=== PATIENT | female | born 1975 | race Caucasian/White ===

== ENCOUNTER 2025-03-27 13:19 | Emergency (ER) | payer OTHER, SELFPAY ==
--- NOTE | ~2025-03-27 | CT_ITS ---
CLINICAL HISTORY: left nephrolithiasis eval CT abdomen and pelvis without IV contrast. COMPARISON: None provided. FINDINGS: Partially visualized lung bases are unremarkable. Cholelithiasis within the gallbladder fundus. No pericholecystic inflammatory changes. Liver is enlarged with right lobe measuring 19.5 cm. Noncontrast appearance of the spleen, pancreas and adrenal glands are unremarkable. No renal or ureteral calculus. No hydronephrosis or hydroureter. Normal appendix. Moderate colonic stool burden within the ascending and transverse colon. No bowel obstruction. No mesenteric or retroperitoneal lymphadenopathy. Normal abdominal aorta. Normal appearance of the urinary bladder. No adnexal mass. Small fat containing umbilical hernia. Mild spondylosis. No acute fracture or suspicious bone lesion. IMPRESSION: 1. No evidence of renal obstruction. No renal or ureteral calculus bilaterally. 2. Cholelithiasis. No stigmata of cholecystitis. 3. Moderate colonic stool burden within the ascending colon and transverse colon. No bowel obstruction. This document has been electronically signed by: Uriel Caballero MD on 03/27/2025 16:32:11
[2025-03-27 13:31] VITALS: BP 116/55; PULSE 73; RESP 16; TEMP 36.8; O2SAT 98; BMI 42.0
--- NOTE | 2025-03-27 13:35 | ECG_ITS ---
Test Reason : ABD PAIN Blood Pressure : */* mmHG Vent. Rate : 74 BPM Atrial Rate : 74 BPM P-R Int : 148 ms QRS Dur : 92 ms QT Int : 374 ms P-R-T Axes : 44 -6 35 degrees QTcB Int : 415 ms Normal sinus rhythm Incomplete right bundle branch block Nonspecific T wave abnormality Abnormal ECG No previous ECGs available Referred By: Abraham Castañeda Electronically Signed By: ZACK WOODS MD
--- NOTE | 2025-03-27 13:36 | ED.GENADULT ---
HPI - General Adult General Chief complaint: Abdominal Pain Stated complaint: severe L abd pain Related Data Allergies Allergy/AdvReac Type Severity Reaction Status Date / Time lamotrigine (Lamictal) Allergy Unknown Rash Verified 03/27/25 13:32 Physical Exam ED Vital Signs: Vital Signs - 24 hr 03/27/25 13:31 Temperature 98.2 F Pulse Rate 73 Respiratory Rate 16 Blood Pressure 116/55 L Pulse Oximetry 98 Oxygen Delivery Method Room Air BMI result Body Mass Index 42.0 Course Course Course Narrative: RME: 49-year-old female presents to ED for left upper quadrant abdominal pain with nausea since . Patient denies any diarrhea, fever, chest pain or shortness of breath. Labs EKG ordered. Discharge Plan Discharge Print Language: Slovak
[2025-03-27 13:56] LABS: Hematocrit 41.2 % (37.0-47.0); Hemoglobin 14.4 g/dl (12.0-16.0); Imm Gran Abs Auto 0.02 X10*3/uL (0.00-0.03); Imm Gran Pct Auto 0.4 % (0.0-0.4); Lymphocytes Absolute Auto 1.7 X10*3/uL (1.2-4.9); MANUAL DIFF FLAG NO; Mean Corpuscular HGB Conc 35.0 g/dl (31.0-35.0); Mean Corpuscular Hemoglobin 31.9 pg (27.0-33.0); Mean Corpuscular Volume 91.2 fL (80.0-98.0); NRBC Abs Auto 0.000 X10*3/uL (0.0-0.012); NRBC Pct Auto 0.0 /100WBC (0.0-0.2); Platelet Count 199 X10*3/uL (160-400); Red Blood Count 4.52 X10*6/uL (4.20-5.50); White Blood Count 5.7 X10*3/uL (4.8-10.8)
[2025-03-27 14:02] LABS: INTERNATIONAL NORM RATIO 1.1 (0.9-1.1); Prothrombin Time 13.0 SEC (10.9-12.4)
[2025-03-27 14:04] LABS: Partial Thromboplastin Time 35.6 SEC (26.7-34.1)
--- OUTSIDE RECORDS SUMMARY | 2025-03-27 14:34 | XMS_ITS | Encounter Summary ---
Author Organization [facility] Address [address] [address] Phone Care Team Providers Care Teacher Cclc Name Role Phone Tere Carcamo MD Unavailable [phone] Hill Min MD Unavailable Talha Krueger MD Unavailable [phone] Amna Wise MD Unavailable [phone] Amee Noriega PA-C Unavailable [phone] Nimo Zepeda BENCH LATHE OPERATOR Unavailable [phone] Unavailable [email or web address] Joe Hernandez MD Unavailable [phone] Amna Wise MD Primary Care Provider Encounter Details Date Type Department Care Team (Late st Contact Info) Description 09/23/2017 Procedure Pass [place] Admitting Dept - Virtual Department [address] [place] [address] Social History Tobacco Use Types Packs/Day Years Used Date Smoking Tobacco: Former Cigarettes 1 10 1 2 - 2001 Smokeless Tobacco: Never Alcohol Use Standard Drinks/Week Comments No 0 (1 standard drink = 0.6 oz pur e alcohol) Comments Unknown Sex and Gender Information Value Date Recorded Sex Assigned at Not on file Legal Sex Female 9:31 PM EDT Gender Identity Not on file Sexual Orientation Not on file documented as of this encounter Plan of Treatment Not on file documented as of this encounter Visit Diagnoses Not on filedocumented in this encounter Additional Health Concerns Infection Onset Date Last Indicated Resolved Time MRSA 10/16/2017 10/16/2017 09/04/2022 1:26 AM EST documented as of this encounter Care Teams Teacher Cclc Relationship Specialty Start Date End Date Amna Wise MD [address] [place] [address] PCP - General Family Medicine 06/30/17 Tere Carcamo MD [address] [place] [address] Historical LMR Provider 05/05/17 2 Hill Min MD [address] [place] [address] [email or web address] Historical LMR Provider 05/05/17 07/28/21 Talha Krueger MD [address] [place] [address] [email or web address] Historical LMR Provider 05/05/17 07/28/21 Amna Wise MD [address] [place] [address] Historical LMR Provider 05/05/17 2 Amee Noriega PA-C [address] [place] [address] Orthopedics & Sports Medicine, [facility] [place] [address] [email or web address] Historical LMR Provider 05/05/17 07/28/21 Nimo Zepeda NP [address] [place] [address] Historical LMR Provider 05/05/17 07/28/21 Ashley Jon RDCS [email or web address] Historical LMR Provider 05/05/17 07/28/21 Joe Hernandez MD [address] [place] [address] Historical LMR Provider 05/05/17 2 documented as of this encounter Additional Source Comments The information contained in this document represents components of the legal health record. It is not the complete legal health record.[facility]
--- OUTSIDE RECORDS SUMMARY | 2025-03-27 14:34 | XMS_ITS | Encounter Summary ---
Author Organization [facility] Address [address] [email or web address] [facility] [address] [place] [address] Phone Care Team Providers Care Travograph Operator Name Role Phone Amna Wise MD Primary Care Provider Encounter Details Date Type Department Care Team (Late st Contact Info) Description 11/03/2023 Procedure Pass [facility] Endoscopy Admitting Dept Virtual Department [address] [place] [address] Social History Tobacco Use Types Packs/Day Years Used Date Smoking Tobacco: Former Cigarettes 1 10 2 - 2001 Smokeless Tobacco: Never Alcohol Use Standard Drinks/Week Comments No 0 (1 standard drink = 0.6 oz pur e alcohol) Education Answer Date Recorded Are you interested in more education? Not on latonia e 11/15/2022 Are you concerned about learning? Not on file 11/15/2022 No 11/15/2022 No 11/15/2022 Digital Access Answer Date Recorded No 12/16/2022 No 12/16/2022 Reliable internet access at home? Not on file 12/16/2022 Device with a working camera? Not on file Intimate Partner Violence Answer Date R ecorded Are you denied basic needs s uch as food, clothing, or medical care? No 11/03/2023 In the past 12 months have y ou been in a relationship with a person who hurts, threatens, or tries to control you? No 11/03/2023 Are you denied basic needs s uch as food, clothing, or medical care? No 11/03/2023 In the past 12 months have y ou been in a relationship with a person who hurts, threatens, or tries to control you? No 11/03/2023 Comments No Sex and Gender Information Value Date Recorded Sex Assigned at Not on file Legal Sex Female 9:31 PM EDT Gender Identity Not on file Sexual Orientation Not on file documented as of this encounter Plan of Treatment Not on file documented as of this encounter Visit Diagnoses Not on filedocumented in this encounter Care Teams Travograph Operator Relationship Specialty Start Date End Date Amna Wise [facility] [place] [address] PCP - General Family Medicine 06/30/17 documented as of this encounter Additional Source Comments The information contained in this document represents components of the legal health record. It is not the complete legal health record.[facility]
--- OUTSIDE RECORDS SUMMARY | 2025-03-27 14:34 | XMS_ITS | Patient Health Record ---
Author Organization [facility] Address [address] [place] [id number] Care Team Providers Care Software Project Lead Name Role Phone John Mcfadden [phone] Reason For Referral No Information Plan Of Treatment No Information
--- OUTSIDE RECORDS SUMMARY | 2025-03-27 14:34 | XMS_ITS | Encounter Summary ---
Author Organization [facility] Address [address] [address] Phone Care Team Providers Care General Sales Manager Name Role Phone Tere Carcamo MD Unavailable [phone] Hill Min MD Unavailable Talha Krueger MD Unavailable [phone] Amna Wise MD Unavailable [phone] Amee Noriega PA-C Unavailable [phone] Nimo Zepeda TITLE AGENT Unavailable [phone] Ashley Jon RDCS Unavailable [email or web address] Joe Hernandez MD Unavailable [phone] Amna Wise MD Primary Care Provider Encounter Details Date Type Department Care Team (Late st Contact Info) Description 04/12/2019 Procedure Pass [facility] Endoscopy Admitting Dept Virtual Department [address] [place] [address] Social History Tobacco Use Types Packs/Day Years [...] documented as of this encounter Care Teams General Sales Manager Relationship Specialty Start Date End Date Amna Wise MD [address] [place] [address] PCP - General Family Medicine 06/30/17 Tere Carcamo MD [address] [place] [address] Historical LMR Provider 05/05/17 2 Hill Min MD [address] [place] [address] [email or web address] Historical LMR Provider 05/05/17 07/28/21 Talha Krueger MD [address] [place] [address] [email or web address] Historical LMR Provider 05/05/17 07/28/21 Amna Wise MD [address] [place] [address] Historical LMR Provider 05/05/17 2 Amee Noriega PA-C [address] [place] [address] Orthopedics & Sports Medicine, [facility] [place] [address] [email or web address] Historical LMR Provider 05/05/17 07/28/21 Nimo Zepeda NP [address] [place] [address] Historical LMR Provider 05/05/17 07/28/21 Ashley Jon RDCS [email or web address] Historical LMR Provider 05/05/17 07/28/21 Joe Hernandez MD [address] [place] [address] Historical LMR Provider 05/05/17 2 documented as of this encounter Additional Source Comments The information contained in this document represents components of the legal health record. It is not the complete legal health record.[facility]
--- OUTSIDE RECORDS SUMMARY | 2025-03-27 14:34 | XMS_ITS | Encounter Summary ---
Author Organization [facility] Address [address] [facility] [address] [place] [address] Phone Care Team Providers Care Flight Communications Operator Name Role Phone Tere Carcamo MD Unavailable [phone] Hill Min MD Unavailable [phone] Talha Krueger MD Unavailable Amna Wise MD Unavailable Amee Noriega PA-C Unavailable [phone] Nimo Zepeda TRANSCRIPTION SPECIALIST Unavailable [phone] Ashley Jon RDCS Unavailable [email or web address] Joe Hernandez MD Unavailable [phone] Amna Wise MD Primary Care Provider Encounter Details Date Type Department Care Team (Late st Contact Info) Description 10/16/2017 Documentation [facility] Infectious Disease Virtual Department [address] [place] [address] Clare Miner, PAUL [address] [place] [address] [email or web address] Social History Tobacco Use Types Packs/Day Years Used Date Smoking Tobacco: Former Cigarettes 1 10 1 992 - 2001 Smokeless Tobacco: Never Alcohol Use [...] documented as of this encounter Care Teams Flight Communications Operator Relationship Specialty Start Date End Date Amna Wise MD [address] [address] PCP - General Family Medicine 06/30/17 Tere Carcamo MD [address] [place] [address] Historical LMR Provider 05/05/17 2 Hill Min MD [address] [place] [address] [email or web address] Historical LMR Provider 05/05/17 07/28/21 Talha Krueger MD [address] [place] [address] [email or web address] Historical LMR Provider 05/05/17 07/28/21 Amna Wise MD [address], [place] [address] Historical LMR Provider 05/05/17 2 Amee Noriega PA-C [address] [place] [address] Orthopedics & Sports Medicine, [place] [address] [email or web address] Historical LMR Provider 05/05/17 07/28/21 Nimo Zepeda NP [address] [place] [address] [address] [place] [address] [email or web address] Historical LMR Provider 05/05/17 07/28/21 Ashley Jon, CS [email or web address] Historical LMR Provider 05/05/17 07/28/21 Joe Hernandez MD [address] [place] [address] Historical LMR Provider 05/05/17 2 documented as of this encounter Additional Source Comments The information contained in this document represents components of the legal health record. It is not the complete legal health record.[facility]
--- OUTSIDE RECORDS SUMMARY | 2025-03-27 14:34 | XMS_ITS | Encounter Summary ---
Author Organization [facility] Address [address] [address] Phone Care Team Providers Care Casting Machine Operator Name Role Phone Tere Carcamo MD Unavailable Hill Min MD Unavailable [phone] Talha Krueger MD Unavailable Amna Wise MD Unavailable [phone] Amee Noriega PA-C Unavailable [phone] Nimo Zepeda TOBACCO PRIZER Unavailable [phone] Unavailable [email or web address] Joe Hernandez MD Unavailable [phone] Amna Wise MD Primary Care Provider Reason for Referral * Physical Therapy (Routine) - Closed Specialty Diagnoses / Procedures Referred By Brenda t Referred To Contact Physical Therapy Diagnoses Encounter for rehabilitation Antwon Rosa MD Phone: tel: fax: [email or web address] Phone: tel: Referral ID Status Reason Start Date Expiration Date Visits Re quested Visits Authorized [id number] Closed 07/09/2019 07/09/2020 99 [phone] Encounter Details Date Type Department Care Team (Latest Contact Info) Description 07/09/2019 Transcribe Orders [facility] [address] [place] [address] Antwon Rosa MD [address] [place] [address] [email or web address] Encounter for rehabilitation (Primary Dx) Social History Tobacco Use Types Packs/Day Years Used Date Smoking Tobacco: Former Cigarettes 1 10 2001 Smokeless Tobacco: Never Alcohol Use Standard Drinks/Week Comments No 0 (1 standard drink = 0.6 oz pur e alcohol) Comments Unknown Sex and Gender Information Value Date Recorded Sex Assigned at Not on file Legal Sex Female 9:31 PM EDT Gender Identity Not on file Sexual Orientation Not on file documented as of this encounter Plan of Treatment Scheduled Referrals Name Type Priority Associated Diagnoses Orde r Schedule Ambulatory referral to [facility] Physical Therapy Outpatient Referral Routine Encounter for rehabilitation Ordered: 07/09/2019 documented as of this encounter Visit Diagnoses Diagnosis Encounter for rehabilitation- Primary documented in this encounter Additional Health Concerns Infection Onset Date Last Indicated Resolved Time MRSA 10/16/2017 10/16/2017 09/04/2022 1:26 AM EST documented as of this encounter Care Teams Casting Machine Operator Relationship Specialty Start Date End Date Amna Wise MD [address] [address] PCP - General Family Medicine 06/30/17 Tere Carcamo MD [address] [place] [address] Historical LMR Provider 05/05/17 2 Hill Min MD [address] [place] [address] [email or web address] Historical LMR Provider 05/05/17 07/28/21 Talha Krueger MD [address] [place] [address] Historical LMR Provider 05/05/17 07/28/21 Amna Wise MD [address], [place] [address] Historical LMR Provider 05/05/17 2 Amee Noriega PA-C [address] [place] [address] Orthopedics & Sports Medicine, [place] [address] Historical LMR Provider 05/05/17 07/28/21 Nimo Zepeda NP [address] [address] Historical LMR Provider 05/05/17 07/28/21 Ashley Jon, [facility] Historical LMR Provider 05/05/17 07/28/21 Joe Hernandez MD [address] [place] [address] Historical LMR Provider 05/05/17 2 documented as of this encounter Additional Source Comments The information contained in this document represents components of the legal health record. It is not the complete legal health record.[facility]
--- OUTSIDE RECORDS SUMMARY | 2025-03-27 14:34 | XMS_ITS | Clinical Summary ---
Author Organization [facility] Address [address] [facility] [address] [place] [address] Phone Care Team Providers Care Complaints Coordinator Name Role Phone Amna Guerrero MD Primary Care Provider Allergies Active Allergy Reactions Criticality Noted Date Comments Lamotrigine Rash Low 08/06/2017 Medications LORazepam (ATIVAN) 1 MG tablet Take 1 mg by mouth 4 (four) times a day. Active DULoxetine (CYMBALTA) 60 MG capsule Take 120 mg by mouth daily. Active ergocalciferol (DRISDOL) 50,000 unit capsuleIndicatio ns:Vitamin D deficiency, unspecified TAKE 1 CAPSULE BY MOUTH ONCE PER WEEK 12 capsule 01/17/2023 Active lurasidone (LATUDA) 60 mg tablet TAKE 1 TABLET BY MOUTH DAILY IN THE EVENING WITH FOOD 10/14/2023 Active Active Problems Problem Noted Date Diagnosed Date Therapeutic drug monitoring 08/05/2022 Assessment & Plan (08/05/2022 9:51 AM EST): No symptomatic AEs to duloxetine; updated labs today Generalized pain 08/05/2022 Assessment & Plan (08/05/2022 9:51 AM EST): Baseline TSH Vitamin D deficiency 08/05/2022 Assessment & Plan (08/05/2022 9:51 AM EST): Baseline D Acute pain of both shoulders 09/15/2020 Assessment & Plan (12/07/2020 1:19 PM EDT): Stable. Tylenol Arthritis 650 mg Take 2 pills PO daily as needed. Assessment & Plan (09/15/2020 1:27 PM EST): Continue Tylenol Arthritis 650 mg Take 2 pills PO daily. Physical therapy strengthening exercises for shoulders. Muscle rubs with lidocaine for additional shoulder pain relief as needed. Primary osteoarthritis of both feet 09/15/2019 Assessment & Plan (08/15/2021 7:34 AM EST): Continue arch support /good supportive shoes May continue Tyl arthritis, check labs CBC CMP today Weight loss Assessment & Plan (12/07/2020 1:17 PM EDT): Continue Tylenol Arthritis 650 mg Take 2 pills PO daily. Assessment & Plan (09/15/2020 1:23 PM EST): Continue Tylenol Arthritis 650 mg Take 2 pills PO daily. Calcaneal spur of right foot 09/15/2019 Assessment & Plan (12/07/2020 1:18 PM EDT): Stable. Dr. Laird's heel cups as needed. Patient will avoid walking barefooted on hard surfaces. Assessment & Plan (09/15/2020 1:25 PM EST): Stable. Dr. Laird's heel cups as needed. Avoid walking barefooted on hard surface. Achilles tendinitis of both lower extremities Calcaneal spur of left foot 09/15/2019 Assessment & Plan (12/07/2020 1:18 PM EDT): Dania. Dr. Laird's heel cups as needed. Patient will avoid walking barefooted on hard surfaces. Assessment & Plan (09/15/2020 1:25 PM EST): Stable at present. Dr. laird's heel cups as needed. Avoid walking barefooted on hard surfaces. Fibromyalgia 08/13/2019 Assessment & Plan (08/05/2022 9:50 AM EST): Reasonably well-controlled on current regimen of high dose duloxetine and weekly therapy. Discussed importance of treating MIGDALIA and advised re: potential benefit of adding alondra-chi to her current routine. No objective evidence concerning for underlying connective tissue disease or inflammatory arthritis. Assessment & Plan (08/15/2021 7:32 AM EST): 45 yo female with hx of FM on Cymbalta doing fairly well on Cymbalta and tylenol Goals of FM include obtaining restful sleep-Continue good sleep routine. Controlling mood disorder- f/u regularly with counselor- continue Cymbalta Regular exercise encouraged : Aerobic exercise to 5 days weekly at 20-30 minutes and strengthening exercises Assessment & Plan (12/07/2020 1:17 PM EDT): Stable. Continue good sleep routine. Aerobic exercise to 4 days weekly at 20-30 minutes. Assessment & Plan (09/15/2020 1:24 PM EST): Continue good sleep routine. Patient not needing Tizanidine for sleep aid at present. Discussed aerobic exercise to 20-30 minutes 4 days a week as weather improves. Pain of both hip joints 08/13/2019 Pain in toes of both feet 08/13/2019 Chondromalacia of right knee Family History Medical History Relation Comments Coronary artery disease Father Gout Father Dementia Maternal Grandmother Diabetes Mother Cancer Paternal Grandmother Relation Status Comments Father Alive Maternal Grandfather Alive Maternal Grandmother Alive Mother Alive Paternal Grandfather Alive Paternal Grandmother Alive Social History Tobacco Use Types Packs/Day Years Used Date Smoking Tobacco: Former Cigarettes 1 10 1 992 - 2002 Smokeless Tobacco: Never Tobacco Cessation:Counseling Given: Not Answered Alcohol Use Standard Drinks/Week Comments No 0 [...] on file Sexual Orientation Not on file Last Filed Vital Signs Vital Sign Reading Time Taken Comments Blood Pressure 113/87 11/03/2023 9:06 AM EDT Pulse 99 11/03/2023 9:06 AM EDT Temperature 36.5 C (97.7 F) 11/03/2023 8:53 AM EDT Respiratory Rate 16 11/03/2023 9:06 AM EDT Oxygen Saturation 96% 11/03/2023 9:06 AM EDT Inhaled Oxygen Concentration - - Weight 128.8 kg (284 lb) 10/31/2023 12:16 PM EDT Height 160 cm (5' 3 ) 10/31/2023 12:16 PM EDT Body Mass Index 50.31 10/31/2023 12:16 PM EDT Plan of Treatment Health Maintenance Due Date Last Done Comments LIPID PANEL 1973 DEPRESSION SCREENING 1985 SMOKING Hx and SMOKELESS TOBACCO SCREENING 1986 HEPATITIS C SCREENING 1991 HIV ONE-TIME SCREENING (18-65 YEARS) 1991 PAP SMEAR 1994 MAMMOGRAM 2013 COLOGUARD 2018 FIT TEST 2018 FOBT 2018 SIGMOIDOSCOPY 2018 VIRTUAL COLONOSCOPY 2018 PNEUMOCOCCAL VACCINES (50+ years) (1 of 1 - PCV) 2023 ZOSTER VACCINES (1 of 2) 2023 INFLUENZA VACCINE (#1) 2025 , 05/13/2022, 04/03/2021, Additional history exists COVID-19 VACCINE ( season) 2025 05/13/2022, 06/12/2021, 11/21/2020, Additional history exists SCREENING FOR DIABETES 08/05/2025 08/05/2022 Adult Td,Tdap Booster 10/27/2031 10/26/2021, 010 COLONOSCOPY 11/02/2033 11/03/2023, 04/12/2019 COLORECTAL CANCER SCREENING 11/02/2033 HEPATITIS A VACCINES Aged Out No long er eligible based on patient's age to complete this topic HIB VACCINES Aged Out No longer eligi ble based on patient's age to complete this topic MENINGOCOCCAL VACCINES (ACWY) Aged Out No longer eligible based on patient's age to complete this topic MENINGOCOCCAL VACCINES (B) Aged Out N o longer eligible based on patient's age to complete this topic Medical Devices Not on file Procedures Procedure Name Priority Date/Time Associated Diagnosis Comments ENDOSCOPY, COLON 11/03/2023 8:29 AM EDT from Last 3 Months or Most Recently Relevant to Health Maintenance Results * ENDOSCOPY, COLON (11/03/2023 8:29 AM EDT) Narrative Transcriptions Antwon Yu MD - 11/03/2023 8:29 AM EDT [facility] Patient Name: Svitlana Alexis Attending MD:: ANTWON YU MD, , Procedure Date: 11/03/2023 8:29 AM Date of : 1975 Age: 48 Admit Type: Outpatient Gender: Female Room: [facility] Referring MD: AMNA GUERRERO MD Exam Type: Colonoscopy Indications: Screening for colorectal malignant neoplasm Medications: Monitored Anesthesia Care Procedure: Informed consent was obtained from the patientafter discussion of the indications, limitations, alternatives, benefits, and risks of the procedure. Risks specifically discussed include but are not limited to medication reactions, missed lesions, bleeding, perforation, or the need for emergent surgery. Throughout the procedure, the patient's blood pressure, pulse, end-tidal CO2, and oxygensaturations were monitored continuously. The Olympus adult variable colonoscope CF-YR122J #1 was introduced through the anus and advanced to the cecum, identified by appendiceal orifice andileocecal valve. The colonoscopy was performed without difficulty. The patient tolerated the procedurewell. The quality of the bowel preparation was excellent. The quality of the bowel preparation was evaluated using the BBPS (Hannah Bowel Preparation Scale)with scores of: Right Colon = 3, Transverse Colon = 3and Left Colon = 3 (entire mucosa seen well with no residual staining, small fragments of stool oropaque liquid). The total BBPS score equals 9. Anatomical landmarks were photographed. Complications: No immediate complications. Estimated blood loss: Minimal. Findings: The perianal and digital rectal examinations were normal. A 4 mm polyp was found in the descending colon. The polyp was sessile. The polyp was removed with acold snare. Resection and retrieval were complete. Internal hemorrhoids were found duringretroflexion. The hemorrhoids were mild. Previous scars frombanding noted. The exam was otherwise normal throughout theexamined colon. Impression: - One 4 mm polyp in the descending colon, removedwith a cold snare. Resected and retrieved. - Internal hemorrhoids. Recommendation: - Discharge patient to home. - Await pathology results. ANTWON YU MD, 11/03/2023 8:49:33 AM This report has been signed electronically. Number of Addenda: 0 Note Initiated On: 11/03/2023 8:29 AM Procedure Code(s): --- Professional --- 51307, Colonoscopy, flexible; with removal of tumor(s), polyp(s), or other lesion(s) by snare technique --- Technical --- 69448, Colonoscopy, flexible; with removal of tumor(s), polyp(s), or other lesion(s) by snare technique Diagnosis Code(s): --- Professional --- Z12.11, Encounter for screening for malignantneoplasm of colon D12.4, Benign neoplasm of descending colon K64.8, Other hemorrhoids --- Technical --- Z12.11, Encounter for screening for malignantneoplasm of colon D12.4, Benign neoplasm of descending colon K64.8, Other hemorrhoids CPT copyright 2021 [employer]. All rights reserved. The codes documented in this report are preliminary and upon food science professor reviewmay be revised to meet current compliance requirements. Procedure Date: 11/03/2023 8:29:[address] [place] [id number] Amna Guerrero MD GI PROCEDURE ORDERABLES Final Result from Last 3 Months or Most Recently Relevant to Health Maintenance Insurance MEDICARE PART A & B [facility] ONE CARE MEDICARE REPLACEMENT MEDICARE PART A & B [facility] MEDICARE REPLACEMENT NIKKY MAJANO [id number] MEDICARE PART A & B MEDICARE PART A & B MEDICARE PART A & B ONE CARE MEDICARE REPLACEMENT MEDICARE PART A & B MEDICARE PART A & B ONE CARE MEDICARE REPLACEMENT NIKKY MAJANO [facility] MEDICARE PART A & B [facility] ONE CARE MEDICARE REPLACEMENT MEDICARE PART A & B [facility] CARE MEDICARE REPLACEMENT Advance Directives For more information, please contact: [phone] (9AM - 5PM [facility], Friday-Friday) Documents on File Type Date Recorded Patient Promotions Executive Expl yareli [employer] Proxy 09/24/2017 9:54 AM * Full Code (Presumed) (Latest Code Status on File) Date Activated Date Inactivated Comments 09/23/2017 12:31 PM 09/23/2017 7:43 PM Care Teams Complaints Coordinator Relationship Specialty Start Date End Date Amna Guerrero [facility] [place] [address] PCP - General Family Medicine 06/30/17 Additional Source Comments The information contained in this document represents components of the legal health record. It is not the complete legal health record.[facility]
--- OUTSIDE RECORDS SUMMARY | 2025-03-27 14:34 | XMS_ITS | Encounter Summary ---
Author Organization [facility] Address [address] [employer] [facility] [address] [place] [address] Phone Care Team Providers Care Value Engineer Name Role Phone Tere Carcamo MD Unavailable Hill Min MD Unavailable Talha Krueger MD Unavailable Amna Wise MD Unavailable Amee Noriega PA-C Unavailable [phone] Nimo Zepeda SUIT MAKER Unavailable [phone] Unavailable [email or web address] Joe Hernandez MD Unavailable [phone] Amna Wise MD Primary Care Provider Encounter Details Date Type Department Care Team (Late st Contact Info) Description 08/18/2019 Ancillary Orders [facility] Rheumatology [address] [place] [address] Gage Duke PA [address] [facility] [address]_[place] [address] [email or web address] Chronic pain in right foot Social History Tobacco Use Types Packs/Day Years [...] on file documented as of this encounter Results * XR FOOT 3 OR MORE VIEWS (BILATERAL) (08/18/2019 11:22 AM EST) Anatomical Region Laterality Modality Foot Left Radiographic Shahnaz ging 08/18/2019 11:3 8 AM EST Impressions 08/18/2019 11:45 AM EST 1. No acute displaced fracture. 2. Mild degenerative change as above. POS: [id number] Narrative 08/18/2019 11:45 AM EST XR FOOT 3 OR MORE VIEWS (BILATERAL) CLINICAL HISTORY: Foot pain, initial exam. The patient reports chronic bilateral foot pain. COMPARISON: None. FINDINGS: Bones and Joints: No acute displaced fracture or dislocation. There are bilateral plantar calcaneal spurs and enthesopathy at the attachment of both Achilles tendons. There is bony proliferation anteriorly of both tibial plafonds and mild dorsal bony proliferation of the proximal aspects of both navicular. The remainder of the joint spaces are maintained. There is a small right os navicular. Additional accessory ossicles are seen adjacent to both cuboid bones. Soft tissues: The soft tissues are normal. No foreign body. Procedure Note Alice Batista MD - 08/18/2019 XR FOOT 3 OR MORE VIEWS (BILATERAL) CLINICAL HISTORY: Foot pain, initial exam. The patient reports chronicbilateral foot pain. COMPARISON: None. FINDINGS: Bones and Joints: No acute displaced fracture or dislocation. There arebilateral plantar calcaneal spurs and enthesopathy at the attachment ofboth Achilles tendons. There is bony proliferation anteriorly of bothtibial plafonds and mild dorsal bony proliferation of the proximal aspectsof both navicular. The remainder of the joint spaces are maintained.There is a small right os navicular. Additional accessory ossicles areseen adjacent to both cuboid bones. Soft tissues: The soft tissues are normal. No foreign body. IMPRESSION: 1. No acute displaced fracture. 2. Mild degenerative change as above. POS: [id number] Gage SHER IMG XR LOWER EXTREMITY Final Result documented in this encounter Visit Diagnoses Diagnosis Chronic pain in left foot Chronic pain in right foot Chronic pain in right foot documented in this encounter Additional Health Concerns Infection Onset Date Last Indicated Resolved Time MRSA 10/16/2017 10/16/2017 09/04/2022 1:26 AM EST documented as of this encounter Care Teams Value Engineer Relationship Specialty Start Date End Date Amna Wise MD [address] [address] PCP - General Family Medicine 06/30/17 Tere Carcamo MD [address] [place] [address] Historical LMR Provider 05/05/17 2 Hill Mni MD [address] [place] [address] [email or web address] Historical LMR Provider 05/05/17 07/28/21 Talha Krueger MD [address] [place] [address] [email or web address] Historical LMR Provider 05/05/17 07/28/21 Amna Wise MD [address] [address] Historical LMR Provider 05/05/17 2 Amee Noriega PA-C [address] [place] [address] Orthopedics & Sports Medicine, [facility] [place] [address] Historical LMR Provider 05/05/17 07/28/21 Nimo Zepeda NP [address] [place] [address] 6 [place] [address] Historical LMR Provider 05/05/17 07/28/21 Ashley Jon, SHERLYCS Historical LMR Provider 05/05/17 07/28/21 Joe Hernandez MD [address] [place] [address] Historical LMR Provider 05/05/17 2 documented as of this encounter Additional Source Comments The information contained in this document represents components of the legal health record. It is not the complete legal health record.[facility]
--- OUTSIDE RECORDS SUMMARY | 2025-03-27 14:34 | XMS_ITS | Encounter Summary ---
Author Organization [facility] Address [address] [address] Phone Care Team Providers Care Permaculture Contractor Name Role Phone Tere Carcamo MD Unavailable [phone] Hill Min MD Unavailable Talha Krueger MD Unavailable [phone] Amna Wise MD Unavailable [phone] Amee Noriega PA-C Unavailable [phone] Nimo Zepeda PAINTER SPRING Unavailable [phone] Unavailable [email or web address] Joe Hernandez MD Unavailable [phone] Amna Wise MD Primary Care Provider Encounter Details Date Type Department Care Team (Late st Contact Info) Description 08/06/2017 Procedure Pass [address] [place] [address] Social History Tobacco Use Types Packs/Day Years Used Date Smoking Tobacco: Former Cigarettes 1 10 - 2001 Smokeless Tobacco: Never Comments Unknown Sex and Gender Information Value Date Recorded Sex Assigned at Not on file Legal Sex Female 9:31 PM EDT Gender Identity Not on file Sexual Orientation Not on file documented as of this encounter Last Filed Vital Signs Vital Sign Reading Time Taken Comments Blood Pressure - - Pulse - - Temperature - - Respiratory Rate - - Oxygen Saturation - - Inhaled Oxygen Concentration - - Weight 113.4 kg (250 lb) 08/08/2017 2:18 PM EST Height 160 cm (5' 3 ) 08/08/2017 2:18 PM EST Body Mass Index 44.29 08/08/2017 2:18 PM EST documented in this encounter Plan of Treatment Not on file documented as of this encounter Visit Diagnoses Not on filedocumented in this encounter Additional Health Concerns Infection Onset Date Last Indicated Resolved Time MRSA 10/16/2017 10/16/2017 09/04/2022 1:26 AM EST documented as of this encounter Care Teams Permaculture Contractor Relationship Specialty Start Date End Date Amna Wise MD [address] [address] PCP - General Family Medicine 06/30/17 Tere Carcamo MD [address] [place] [address] Historical LMR Provider 05/05/17 2 Hill Min MD [address] [place] [address] [email or web address] Historical LMR Provider 05/05/17 07/28/21 Talha Krueger MD [address] [place] [phone] [email or web address] Historical LMR Provider 05/05/17 07/28/21 Amna Wise MD [address] [place] [address] Historical LMR Provider 05/05/17 2 Amee Noriega PA-C [address] [place] [address] Orthopedics & Sports Medicine, [facility] [place] [address] Historical LMR Provider 05/05/17 07/28/21 Nimo Zepeda NP [address] [place] [address] Historical LMR Provider 05/05/17 07/28/21 Ashley Jon, RDCS [email or web address] Historical LMR Provider 05/05/17 07/28/21 Joe Hernandez MD [address] [place] [address] Historical LMR Provider 05/05/17 2 documented as of this encounter Additional Source Comments The information contained in this document represents components of the legal health record. It is not the complete legal health record.[facility]
[2025-03-27 14:45] LABS: Appearance Urine Clear; Glucose Urine UA Negative (Negative); PH 5.5 (5.0-9.0); Specific Gravity - Urine 1.010 (1.005-1.025); UMIC TRIGGER UACC YES
--- NOTE | 2025-03-27 14:49 | ED.GENADULT ---
[facility] - General Adult General Chief complaint: Abdominal Pain Stated complaint: severe L abd pain Time Seen by Provider: 03/27/25 14:21 Source: patient Mode of arrival: ambulatory Limitations: no limitations History of Present Illness ED Provider: Dr. Bullock [facility] narrative: This is a 49-year-old female with no medical history presented hospital today for sudden onset of left flank pain. Patient stated that this started on . Patient stated that this started on the left flank and migrated down to her left suprapubic area. This pain comes and go. Denies any dysuria denies any hematuria denies any fever. She does endorse some nausea with this pain. This pain has been worsening therefore she presents to the ER for further evaluation. She does have history of hysterectomy in the past. Related Data Previous Rx's ?Medication ?Instructions ?Recorded cefpodoxime 200 mg tablet 200 mg PO Q12H 10 days #20 tabs 03/27/25 Allergies Allergy/AdvReac Type Severity Reaction Status Date / Time lamotrigine (Lamictal) Allergy Unknown Rash Verified 03/27/25 13:32 Review of Systems Review of Systems: Pertinent review of systems as mentioned in HPI. All other system otherwise negative. [facility] Past Medical History [facility] Narrative: None Social History Social History Smoked in Last 30 Days: No Use of substances other than those prescribed or required for medical reasons: No Advance Directives: No Advance Directives Information Provided: Yes Patient : No Physical Exam ED Exam Exam: General: Pleasant, no distress, interacting appropriately Head: Normacephalic, atraumatic ENT: oral mucosa moist, neck supple, no tracheal deviation Cardiovascular: regular rate, regular rhythm, no murmurs, rubbing, gallops Respiratory: CTAB, no wheeze, rales, rhonchi Gastrointestinal: Soft, non distended, left flank tenderness on palpation, no CVA tenderness bilaterall Neurological: Awake and alert, no facial droop noted Skin: Warm and dry Psychiatric: Appropriate mood and thoughts Vital Signs: Vital Signs - 24 hr 03/27/25 13:31 03/27/25 15:12 Temperature 98.2 F 98.1 F Pulse Rate 73 74 Respiratory Rate 16 18 Blood Pressure 116/55 L 112/73 Pulse Oximetry 98 98 Oxygen Delivery Method Room Air Room Air BMI result Body Mass Index 42.0 Medications Administered Discontinued Medications Generic Name Dose Route Start Last Admin Trade Name Freq PRN Reason Stop Dose Admin Ceftriaxone Sodium 1 gm 03/27/25 14:53 03/27/25 15:01 Ceftriaxone Sodium 1 Gm Vial IVPUSH 03/27/25 14:54 1 gm ONCE ONE Administration Sodium Chloride 1,000 mls @ 999 mls/hr 03/27/25 14:45 03/27/25 16:24 Ns IV 03/27/25 15:45 Infused .Q1H1M [facility]ETH Infusion Ketorolac Tromethamine 15 mg 03/27/25 14:41 03/27/25 14:53 Ketorolac Tromethamine 15 Mg/Ml Vial IVPUSH 03/27/25 14:42 15 mg ONCE ONE Administration Morphine Sulfate 4 mg 03/27/25 16:11 03/27/25 16:20 Morphine Sulfate 4 Mg/Ml Cartridge IVPUSH 03/27/25 16:12 4 mg ONCE ONE Administration Protocol Ondansetron HCl 4 mg 03/27/25 14:41 03/27/25 14:53 Ondansetron Hcl 4 Mg/2 Ml Vial IVPUSH 03/27/25 14:42 4 mg ONCE ONE Administration Tamsulosin HCl 0.4 mg 03/27/25 14:41 03/27/25 14:53 Tamsulosin Hcl 0.4 Mg Capsule PO 03/27/25 14:42 0.4 mg ONCE ONE Administration Medical Decision Making Medical Decision Making [facility] Narrative: 49-year-old female presented hospital today for evaluation of left-sided flank pain that started on . Suspect patient may have nephrolithiasis. I did perform a bedside ultrasound. Did not appreciate any signs of hydronephrosis. We will obtain a CT abdomen and pelvis for better evaluation. The patient is complaining of left renal colicky pain. UA will be sent off. The chemistries will be obtained to assess her kidney functions. IV fluid, IV Toradol, tamsulosin, IV Zofran will be given for her symptoms. Patient on reassessment stated that she is feeling much better. We will plan to discharge patient. I suspect patient likely has pyelonephritis. There was no sign of kidney stone on CT imaging. We will plan to discharge patient with a course of cefpodoxime to take. She did receive a dose of IV ceftriaxone while awaiting here. Her UA did show positive leuk esterase with bacteria. Differential Diagnosis Differential Diagnoses: The differential diagnosis associated with the presentation includes Nephrolithiasis, pyelonephritis, UTI Admission/Observation Consideration of admission/observation: Escalation of care including admission/observation considered Lab Data MDM Lab Attestation statement: I reviewed the patient's lab results. 03/27/25 13:50 03/27/25 13:50 Labs: Lab Results 03/27/25 03/27/25 Range/Units 13:50 14:25 WBC 5.7 (4.8-10.8) X10*3/uL RBC 4.52 (4.20-5.50) X10*6/uL Hgb 14.4 (12.0-16.0) g/dl Hct 41.2 (37.0-47.0) % MCV 91.2 (80.0-98.0) fL MCH 31.9 (27.0-33.0) pg MCHC 35.0 (31.0-35.0) g/dl RDW 12.1 (11.0-16.0) % Plt Count 199 (160-400) X10*3/uL MPV 9.2 L (9.4-12.3) fL Immature Gran % (Auto) 0.4 (0.0-0.4) % Neut % (Auto) 64.3 (45-73) % Lymph % (Auto) 29.8 (20-40) % Wilkes % (Auto) 3.9 (2-11) % Eos % (Auto) 1.2 (0-4) % Baso % (Auto) 0.4 (0-2) % Lymph # (Auto) 1.7 (1.2-4.9) X10*3/uL Wilkes # (Auto) 0.2 (0.1-1.2) X10*3/uL Eos # (Auto) 0.1 (0.0-0.4) X10*3/uL Baso # (Auto) 0.0 (0.0-0.2) X10*3/uL Abs Immat Gran (auto) 0.02 (0.00-0.03) X10*3/uL Absolute Neuts (auto) 3.7 (2.0-8.3) x10*3/uL Absolute Nucleated RBC 0.000 (0.0-0.012) X10*3/uL Nucleated RBC % (auto) 0.0 (0.0-0.2) /100WBC PT 13.0 H (10.9-12.4) SEC INR 1.1 (0.9-1.1) APTT 35.6 H (26.7-34.1) SEC Sodium 142 (135-145) mmol/L Potassium 3.9 (3.3-5.1) mmol/L Chloride 108 (96-108) mmol/L Carbon Dioxide 22 (22-29) mmol/L Anion Gap 16 (12-20) BUN 16 (9-16) mg/dL Creatinine 1.18 (0.5-1.4) mg/dL Estim Creat Clear Calc 66.2 Estimated GFR 48 Random Glucose 159 H (60-115) mg/dL Calcium 9.6 (8.4-10.2) mg/dL Total Bilirubin 0.6 (0.0-1.0) mg/dL AST 20 (5-31) U/L ALT 19 (0-31) U/L Alkaline Phosphatase 50 (39-117) U/L Troponin I High Sens < 2.7 (<3.5-17.0) ng/L Total Protein 7.1 (6.5-8.0) g/dL Albumin 4.5 (3.5-5.0) g/dL Lipase 40 (8-78) U/L Beta HCG, Quant 4 mIU/mL Urine Color Yellow Urine Appearance Clear Urine pH 5.5 (5.0-9.0) Ur Specific [place] 1.010 (1.005-1.025) Urine Protein Negative (Neg-Trace) mg/dL Urine Glucose (UA) Negative (Negative) mg/dL Urine Ketones Negative (Negative) mg/dL Urine Blood Negative (Negative) Urine Nitrite Negative (Negative) Ur Leukocyte Esterase Large (3+) H (Negative) Urine RBC 0-2 (0-2) /HPF Urine WBC 21-50 H (0-5) /HPF Ur Squamous Epith Cells 6-10 (0-2) /HPF Urine Bacteria 1+ (None Seen) Hyaline Casts 3-5 (0-2) /LPF Independent Interpretation I performed an independent interpretation of an: CT Scan Radiology Impression Discussion of test interpretation with radiology: I have reviewed the radiologist's reading. Discharge Plan Discharge Clinical Impression: Pyelonephritis Patient Disposition: Home, Self-Care Instructions: Kidney Infection (ED) Prescriptions: New cefpodoxime 200 mg tablet 200 mg PO Q12H 10 Days Qty: 20 0RF Rx Instructions: must administer with a meal/food Print Language: Salvadorean
[2025-03-27 14:51] LABS: UACC Culture Trigger YES
[2025-03-27 14:56] LABS: Troponin-I High Sensitivity < 2.7 ng/L (<3.5-17.0)
[2025-03-27 15:12] VITALS: BP 112/73; PULSE 74; RESP 18; TEMP 36.7; O2SAT 98
[2025-03-27 15:43] LABS: Alanine Aminotransferase 19 U/L (0-31); Albumin Level 4.5 g/dL (3.5-5.0); Alkaline Phosphatase 50 U/L (39-117); Anion Gap 16 (12-20); Aspartate Amino Transferase 20 U/L (5-31); Blood Urea Nitrogen 16 mg/dL (9-16); Calcium 9.6 mg/dL (8.4-10.2); Carbon Dioxide 22 mmol/L (22-29); Chloride 108 mmol/L (96-108); Creatinine Clr Calc Pharmacy 66.2; Estimated Glomerular Filt Rate 48; Lipase 40 U/L (8-78); Potassium 3.9 mmol/L (3.3-5.1); Sodium 142 mmol/L (135-145); Total Protein 7.1 g/dL (6.5-8.0)
[2025-03-27 17:57] VITALS: BP 112/73; PULSE 74; RESP 18; TEMP 36.7; O2SAT 98
== END 2025-03-27 17:57 | disposition home or self-care (01) ==
PROVIDERS: Physician Assistant; Emergency Provider Student in an Organized Health Care Education/Training Program; PCP Family Medicine
DX: N12 Tubulo-interstitial nephritis, not specified as acute or chronic (principal)
CPT/HCPCS: 36415; 74176; 80053; 81001; 83690; 84484; 84702; 85025; 85610; 85730; 87086; 93005; 96361; 96374; 96375; 99284; 99285; J0696; J1885; J2270; J2405

== ENCOUNTER → 2025-03-27 13:35 | Outpatient (BNV) | payer OTHER, SELFPAY | PROVIDERS: Emergency Provider Student in an Organized Health Care Education/Training Program; PCP Family Medicine; Visit Provider Internal Medicine Cardiovascular Disease | DX: I45.10 Unspecified right bundle-branch block (principal) | CPT/HCPCS: 93010 ==

== ENCOUNTER → 2025-03-27 14:41 | Outpatient (BNV) | payer OTHER, SELFPAY | PROVIDERS: Emergency Provider Student in an Organized Health Care Education/Training Program; PCP Family Medicine; Visit Provider Radiology Diagnostic Radiology | DX: K80.20 Calculus of gallbladder without cholecystitis without obstruction (principal) | CPT/HCPCS: 74176 ==